=== PATIENT | female | born 1960 | race Caucasian/White ===

== ENCOUNTER 2022-09-18 10:24 | Outpatient (CLI) | payer BC, SELFPAY ==
--- NOTE | ~2022-09-18 | XR_ITS ---
XR hip LT min 2V 09/18/2022 10:47 Indication: Left hip pain Procedure: 2 views left hip Comparison: No prior studies for comparison. Findings: Mild osteoarthritis of the left hip. No fracture, subluxation or dislocation. No significan t soft tissue abnormality. No foreign bodies. Surrounding osseous structures and soft tissues are unr emarkable. Impression: 1: Mild osteoarthritis of the left hip. Reviewed, dictated and finalized at location B. MER HELPER Impression: 1: Mild osteoarthritis of the left hip.
== END 2022-09-18 10:25 | disposition home or self-care (01) ==
LOC: CHSIMG 10:28
PROVIDERS: PCP Family Medicine; Visit Provider Family Medicine
DX: M25.552 Pain in left hip (principal)
CPT/HCPCS: 73502

== ENCOUNTER 2024-10-27 14:09 | Outpatient (CLI) | payer BC, SELFPAY ==
--- NOTE | ~2024-10-27 | XR_ITS ---
XR hip RT min 2V Ordering provider: Nimesh Singletary MD History: . Pain in right hip INTO GROIN . Comparison: None. FINDINGS: BONES: No acute fracture or dislocation. HIP JOINT SPACES: Severe osteoarthritic changes of the right hip. PUBIC SYMPHYSIS: Pubic symphysitis. SOFT TISSUES: Normal. IMPRESSION: No acute osseous abnormality pelvis and right hip. Severe osteoarthritic changes of the right hip. Reviewed, dictated and finalized at location A. IC INSPECTOR
== END 2024-10-27 14:10 | disposition home or self-care (01) ==
LOC: CHSIMG 14:12
PROVIDERS: PCP Family Medicine; Visit Provider Family Medicine
DX: M25.551 Pain in right hip (principal)
CPT/HCPCS: 73502